=== PATIENT | male | born 1980 | race Caucasian/White ===

== ENCOUNTER 2018-03-15 02:21 | Emergency (ER) | payer SELFPAY ==
--- NOTE | 2018-03-15 02:39 | Emergency Department Record ---
History of Present Illness - General Chief Complaint: Laceration(s) Stated Complaint: PUT RIGHT HAND THROUGH A WINDOW Time Seen by Provider: 03/15/18 02:33 Source: Patient Mode of Arrival: Ambulatory Limitations: No limitations - History of Present Illness Initial Commments: 38 yo male presents to ED for evaluation of laceration to the the right wrist laterally. Patient reports that he punched through a glass garage door just prior to arriving to the ED. Patient applied belt just above the laceration to stem the bleeding prior to arrival. Patient denies health problems at his baseline, reports that his last tetanus was >10 years ago. Onset/Timin -: Minutes(s) Place: Home Context: Accidental Associated Symptoms: None Treatments Prior to Arrival: Bandage, Other Treatment Prior to Arrival Comment:: tourniquet - [place] Coma Scale Eye Response: (4) Open spontaneously Motor Response: (6) Obeys commands Verbal Response: (5) Oriented Mame Total: 15 - Related Data Hx Tetanus Toxoid Vaccination: No Patient Tetanus UTD (within 5 yrs): Yes Home Medications Medication Instructions Recorded Confirmed Last Taken No Home Med [NO HOME MEDS] 03/15/18 03/15/18 Unknown Allergies Allergy/AdvReac Type Severity Reaction Status Date / Time No Known Drug Allergies Allergy Verified 03/15/18 02:32 Travel Screening - Travel/Exposure Within Last 30 Days Have you traveled within the last 30 days?: No - Travel Symptoms Symptom Screening: None Review of Systems Constitutional: Denies: Chills, Fever, Malaise, Night sweats Eyes: Denies: Eye discharge, Eye pain ENT: Denies: Congestion, Ear pain Respiratory: Denies: Cough, Dyspnea Cardiovascular: Denies: Chest pain, Dyspnea on exertion Endocrine: Denies: Fatigue, Heat or cold intolerance Gastrointestinal: Denies: Abdominal pain, Nausea, Vomiting Genitourinary: Denies: Incontinence, Retention Musculoskeletal: Denies: Arthralgia, Back pain, Joint swelling Skin: Reports: Other (laceration). Denies: Bruising, Change in color Neurological: Denies: Abnormal gait, Confusion, Headache, Seizure Psychiatric: Denies: Anxiety Hematological/Lymphatic: Denies: Anemia, Blood Clots Past Medical History - SOCIAL HISTORY Smoking Status: Never smoker Alcohol Use: Occasional Drug Use: None - RESPIRATORY Hx Respiratory Disorders: No - CARDIOVASCULAR Hx Cardio Disorders: No - NEURO Hx Neuro Disorders: No - GI Hx GI Disorders: No - Hx Genitourinary Disorders: No - ENDOCRINE Hx Endocrine Disorders: No - MUSCULOSKELETAL Hx Musculoskeletal Disorders: No - HEMATOLOGY/ONCOLOGY Hx Hematology/Oncology Disorders: No Family Medical History Any Significant Family History?: No Physical Exam - General General Appearance: Alert, Oriented x3, Cooperative, Moderate distress Limitations: No limitations - Head Head exam: Atraumatic, Normocephalic, Normal inspection Head exam detail: negative: Abrasion, Contusion, Conway's sign, General tenderness, Hematoma, Laceration - Eye Eye exam: Normal appearance. negative: Conjunctival injection, Periorbital swelling, Periorbital tenderness, Scleral icterus - ENT Ear exam: negative: Auricular hematoma, Auricular trauma Nasal Exam: negative: Active bleeding, Discharge, Dried blood, Foreign body Mouth exam: negative: Drooling, Laceration, Tongue elevation - Neck Neck exam: Normal inspection. negative: Meningismus, Tenderness - Respiratory Respiratory exam: Normal lung sounds bilaterally. negative: Rales, Respiratory distress, Rhonchi, Stridor - Cardiovascular Cardiovascular Exam: Regular rate, Normal rhythm, Normal heart sounds - GI/Abdominal GI/Abdominal exam: Soft. negative: Rebound, Rigid, Tenderness - Rectal Rectal exam: Deferred - exam: Deferred - Extremities Extremities exam: Full ROM, Tenderness, Other (2.0 cm laceration just proximal to the right lateral wrist with arterial bleeding present, FROM of the hand distally without evidence for tendon laceration.). negative: Pedal edema - Back Back exam: Denies: CVA tenderness (R), CVA tenderness (L) - Neurological Neurological exam: Alert, Normal gait, Oriented X3 - Psychiatric Psychiatric exam: Normal affect, Normal mood - Skin Skin exam: Normal color. negative: Abrasion Type of lesion: negative: abrasion Course Vital Signs 03/15/18 03/15/18 02:23 02:25 Pulse Rate 83 Pulse Rate [ 122 H Pulse Ox Probe] Respiratory 22 22 Rate Blood Pressure 140/81 Blood Pressure 140/81 [Left Arm] Pulse Ox 97 97 - Reevaluation(s) Reevaluation #1: 03/15/18 02:39 Wound was anesthetized with 1% Lidocaine with epinephrine with good anesthesia, BP cuff was reduced without obvious source for the patient's bleeding. No FB identified, laceration into muscle body is present. Wound was probed under bloodless field without identification of the source of bleeding. ? radial artery injury? Reevaluation #2: 03/15/18 02:49 Case was discussed with Dr. Ray and Darcy Oswald, will accept transfer for Trauma activation. Reevaluation #3: 03/15/18 02:55 Portable radiograph: No radio-opaque FB identified. Medical Decision Making - Lab Data Result diagrams: 03/15/18 02:25 Disposition Disposition: Transfer Clinical Impression: Laceration of upper extremity Qualifiers: Encounter type: initial encounter Laterality: right Qualified Code(s): S41.111A - Laceration without foreign body of right upper arm, initial encounter Disposition: Acute Care Hospital [facility] For Transfer: Trauma evaluation Accepting Physician: Darek Ray Time Discussed w/Accepting Physician: 02:40 Condition: (2) Stable Forms: Patient Portal Access Time of Disposition: 02:51 Quality - Quality Measures Quality Measures: N/A - Blood Pressure Screening Does Patient Have Any of the Following: No Blood Pressure Classification: Pre-Hypertensive BP Reading Systolic Measurement: 140 Diastolic Measurement: 81 Screening for High Blood Pressure: < Pre-Hypertensive BP, F/U Documented > [ [id number]] Pre-Hypertensive Follow-up Interventions: Referral to alternative/primary care provider.
[2018-03-15] MEDS ORDERED: TETANUS AND DIPHTHERIA PF 0.5 ML SYR IM ONE (02:40)
[2018-03-15 02:45] LABS: BASO % 0.2 % (0-6); EOS % 1.2 % (0-6); GRAN % 45.3 % (47-80); HEMATOCRIT 43.1 % (42.0-52.0); HEMOGLOBIN 14.8 gm/dl (14.0-18.0); LYMPH % 47.2 % (16-45); MEAN CORPUSCULAR HEMOGLOBIN 30.6 pg (27-33); MEAN CORPUSCULAR HGB CONC 34.3 g/dl (32-36); MEAN PLATELET VOLUME 10.4 fl (7.4-10.4); MONO % 6.1 % (0-9); PLATELET COUNT 274 K/uL (130-400); RED BLOOD COUNT 4.84 M/uL (4.40-5.70); RED CELL DISTRIBUTION WIDTH 12.7 % (11.5-14.5); WHITE BLOOD COUNT W/O DIFF 8.2 K/uL (4.2-12.2)
[2018-03-15] MEDS ORDERED: FENTANYL PF 100MCG/2ML VIAL IVP ONE (02:55)
[2018-03-15 05:28] LABS: ABO GROUP O; RH TYPE POSITIVE
[2018-03-15 05:29] LABS: ANTIBODY SCREEN NEGATIVE (NEGATIVE)
--- NOTE | 2018-03-17 14:00 | RADIOLOGY REPORT ---
EXAM: RIGHT WRIST HISTORY: PATIENT HIT GLASS DOOR WITH LACERATION NEAR WRIST. TECHNIQUE: Portable AP and lateral views of the right wrist were obtained. Comparison: None. Encounter: Initial. FINDINGS: There is soft tissue deformity in the mid forearm which may be related to some form of tourniquet like device and clinical correlation is suggested. The wrist study is somewhat limited with only two views, but no definite fracture or dislocation identified. No definite foreign body is seen although some foreign bodies will be radiographically indistinguishable from the soft tissues. IMPRESSION: 1. NO FRACTURE OF THE RIGHT WRIST EVIDENT. 2. SOFT TISSUE DEFORMITY OF THE DISTAL FOREARM APPARENTLY RELATED TO LACERATION WITH PROBABLY A TOURNIQUET LIKE DEVICE OVERLYING THE MID FOREARM. JOB NUMBER: [id number] [facility]
== END 2018-03-15 02:58 | disposition short-term general hospital (02) ==
LOC: ER 02:21
DX: S66.821A Laceration of other specified muscles, fascia and tendons at wrist and hand level, right hand, initial encounter (principal); W25.XXXA Contact with sharp glass, initial encounter; Y92.008 Other place in unspecified non-institutional (private) residence as the place of occurrence of the external cause
CPT/HCPCS: 85025; 86850; 86900; 86901; 96372; 99285